=== PATIENT | male | born 1975 | race Caucasian/White ===

== ENCOUNTER 2023-11-14 20:37 | Inpatient (IN) ==
[2023-11-14] MEDS ORDERED: Heparin 5000 UNITS/ML 1 mL VIAL SUBCUT ONE (22:46)
[2023-11-15] MEDS ORDERED: Furosemide 40 mg/4 ml IV VIAL IV SLOW PU ONE (00:13)
[2023-11-15] MEDS ORDERED: Heparin DRIP 25,000 UNITS BAG 25,000 UNITS/250 ML BAG IV SCH (05:45)
[2023-11-15] MEDS ORDERED: Heparin 5000 UNITS/ML 1 mL VIAL IV SCH ×2 (06:00→16:00)
[2023-11-15 06:48] LABS: ABS Basophils 0.1 10^3/uL (0.0-0.1); ABS Eosinophils 0.1 10^3/uL (0.0-0.5); ABS Lymphocytes 1.3 10^3/uL (1.0-4.8); ABS Monocytes 0.5 10^3/uL (0.0-1.1); ABS Nucleated RBC 0.01 10^3/ul; Eosinophil % 1.8 %; Hematocrit 47.1 % (38-53); Hemoglobin 15.6 g/dL (13.2-16.3); Mean Corpuscular Hemoglobin 29.7 pg (27-33); Mean Corpuscular Hgb Conc 33.2 g/dL (31-36); Mean Corpuscular Volume 89.3 fL (80-97); Mean Platelet Volume 7.7 fL (7.5-11.2); Nucleated Red Blood Cells % 0.1 %/100WBC (0.0-0.8); Platelet Count 169 10^3/uL (150-450); Red Blood Count 5.27 10^6/uL (4.06-5.63); Red Cell Distribution Width 16.6 % (12-17)
[2023-11-15] MEDS ORDERED: Albuterol/Ipratropium NEB.SOL (2.5/0.5 MG) 3 ML NEB.SOLN INH PRN (06:50)
[2023-11-15] MEDS ORDERED: Albuterol 2.5mg/3 ml (0.083%) NEB.SOLN INH PRN (06:50)
[2023-11-15 07:08] LABS: Creatinine, Serum 0.79 mg/dL (0.67-1.17); Magnesium 1.7 mg/dL (1.9-2.7); eGFR CKD-EPI 109.6 (>60)
[2023-11-15] MEDS ORDERED: Magnesium Sulfate 2 gm BAG 2 GM/50 ML BAG IVPB ONE (07:09)
[2023-11-15] MEDS ORDERED: Magnesium Sulf 4 GM/100 ML IV 4,000 MG/100 ML BAG IVPB ONE (07:28)
[2023-11-15 07:35] LABS: TSH Ultra Thyroid Stim Horm 1.4 mcIU/mL (0.34-5.60)
[2023-11-15 08:11] LABS: PCO2 Arterial 71 mmHg (35-45); PO2 Arterial 84 mmHg (80-100)
[2023-11-15] MEDS: KCL 20 MEQ/100 ML IVPREMIX 20 MEQ/100 ML BAG IV SCH ×5 (08:25→22:35)
[2023-11-15] MEDS: Potassium Chlor 20 meq TAB.ER PO SCH ×4 (08:41→17:38)
[2023-11-15] MEDS ORDERED: Warfarin per PHARMACY **NOTE FOLLOW UP SCH (14:00)
[2023-11-15 14:29] LABS: INR 1.28 (0.83-1.13)
[2023-11-15 15:06] LABS: Calcium 8.7 mg/dL (8.6-10.3); Creatinine, Serum 0.79 mg/dL (0.67-1.17); Magnesium 2.5 mg/dL (1.9-2.7); eGFR CKD-EPI 109.6 (>60)
[2023-11-15] MEDS ORDERED: Sulfur Hexaflouride MICROSPHR 25 MG VIAL ONE (15:08)
[2023-11-15 15:36] LABS: Activated Partial Thrombo Time 38.6 seconds (26.0-38.0)
[2023-11-15] MEDS: Heparin DRIP 25,000 UNITS BAG 25,000 UNITS/250 ML BAG IV SCH (16:01)
[2023-11-15] MEDS: Warfarin DAILY REMINDER **NOTE FOLLOW UP SCH (19:27)
[2023-11-16] MEDS: Heparin DRIP 25,000 UNITS BAG 25,000 UNITS/250 ML BAG IV SCH ×2 (04:29→15:41)
[2023-11-16 06:07] LABS: ABS Basophils 0.1 10^3/uL (0.0-0.1); ABS Eosinophils 0.2 10^3/uL (0.0-0.5); ABS Lymphocytes 1.3 10^3/uL (1.0-4.8); ABS Monocytes 0.3 10^3/uL (0.0-1.1); ABS Neutrophils 4.6 10^3/uL (1.5-7.6); ABS Nucleated RBC 0.01 10^3/ul; Eosinophil % 2.6 %; Hematocrit 45.8 % (38-53); Hemoglobin 15.1 g/dL (13.2-16.3); Lymphocyte % 20.6 %; Mean Corpuscular Hemoglobin 29.5 pg (27-33); Mean Corpuscular Hgb Conc 32.9 g/dL (31-36); Mean Corpuscular Volume 89.7 fL (80-97); Nucleated Red Blood Cells % 0.1 %/100WBC (0.0-0.8); Platelet Count 175 10^3/uL (150-450); Red Blood Count 5.11 10^6/uL (4.06-5.63); Red Cell Distribution Width 16.7 % (12-17); White Blood Count 6.5 10^3/uL (3.6-10.2)
[2023-11-16 06:26] LABS: INR 1.16 (0.83-1.13)
[2023-11-16 07:14] LABS: Creatinine, Serum 0.74 mg/dL (0.67-1.17); Magnesium 1.9 mg/dL (1.9-2.7); Potassium 3.6 mmol/L (3.5-5.0); eGFR CKD-EPI 111.8 (>60)
[2023-11-16] MEDS ORDERED: Potassium Chlor 20 meq TAB.ER PO ONE (09:13)
[2023-11-16] MEDS: Warfarin DAILY REMINDER **NOTE FOLLOW UP SCH (17:16)
[2023-11-17] MEDS: Heparin DRIP 25,000 UNITS BAG 25,000 UNITS/250 ML BAG IV SCH (01:58)
[2023-11-17 06:27] LABS: ABS Basophils 0.1 10^3/uL (0.0-0.1); ABS Eosinophils 0.2 10^3/uL (0.0-0.5); ABS Lymphocytes 1.6 10^3/uL (1.0-4.8); ABS Monocytes 0.4 10^3/uL (0.0-1.1); ABS Neutrophils 4.9 10^3/uL (1.5-7.6); ABS Nucleated RBC 0.03 10^3/ul; Eosinophil % 2.4 %; Hemoglobin 15.6 g/dL (13.2-16.3); Lymphocyte % 22.4 %; Mean Corpuscular Hemoglobin 29.6 pg (27-33); Mean Corpuscular Hgb Conc 33.1 g/dL (31-36); Mean Corpuscular Volume 89.3 fL (80-97); Mean Platelet Volume 7.8 fL (7.5-11.2); Nucleated Red Blood Cells % 0.4 %/100WBC (0.0-0.8); Platelet Count 171 10^3/uL (150-450); Red Blood Count 5.26 10^6/uL (4.06-5.63); Red Cell Distribution Width 16.6 % (12-17); White Blood Count 7.2 10^3/uL (3.6-10.2)
[2023-11-17 06:30] LABS: INR 1.17 (0.83-1.13)
[2023-11-17 06:50] LABS: Creatinine, Serum 0.68 mg/dL (0.67-1.17); Magnesium 1.9 mg/dL (1.9-2.7); Potassium 3.7 mmol/L (3.5-5.0); eGFR CKD-EPI 114.7 (>60)
[2023-11-17] MEDS ORDERED: Enoxaparin 100 MG/ML SYR SUBCUT SCH (08:00)
[2023-11-17] MEDS: Warfarin DAILY REMINDER **NOTE FOLLOW UP SCH (20:00)
[2023-11-18 06:45] LABS: ABS Basophils 0.1 10^3/uL (0.0-0.1); ABS Eosinophils 0.1 10^3/uL (0.0-0.5); ABS Lymphocytes 1.1 10^3/uL (1.0-4.8); ABS Monocytes 0.4 10^3/uL (0.0-1.1); ABS Neutrophils 5.3 10^3/uL (1.5-7.6); ABS Nucleated RBC 0.02 10^3/ul; Hematocrit 47.7 % (38-53); Hemoglobin 15.8 g/dL (13.2-16.3); Lymphocyte % 16.2 %; Mean Corpuscular Hemoglobin 29.5 pg (27-33); Mean Corpuscular Hgb Conc 33.1 g/dL (31-36); Mean Corpuscular Volume 89.3 fL (80-97); Mean Platelet Volume 7.6 fL (7.5-11.2); Nucleated Red Blood Cells % 0.2 %/100WBC (0.0-0.8); Platelet Count 191 10^3/uL (150-450); Red Blood Count 5.34 10^6/uL (4.06-5.63); Red Cell Distribution Width 16.4 % (12-17)
[2023-11-18 06:51] LABS: INR 1.3 (0.83-1.13)
[2023-11-18 06:59] LABS: Calcium 8.8 mg/dL (8.6-10.3); Creatinine, Serum 0.71 mg/dL (0.67-1.17); eGFR CKD-EPI 113.2 (>60)
[2023-11-18 10:29] VITALS: BP 132/64
== END 2023-11-18 16:30 | disposition home or self-care (01) | DRG 201 ==
LOC: EDHOLD 20:37 → ED 20:37 → SUATTDRO 22:43 → MEDTELE 11-15 01:25 → SUATTDRO 11-16 15:48
PROVIDERS: ADMIT Internal Medicine; ATTEND Family Medicine